=== PATIENT | male | born 1975 | race Caucasian/White ===

== ENCOUNTER 2018-07-04 20:27 | Emergency (ER) | payer OTHER ==
[~2018-07-04] VITALS: Ht 188 cm; Wt 81.6 kg
[2018-07-04 20:27] VITALS: BP 170/96
[2018-07-04] MEDS ORDERED: ONDANSETRON 4 MG/2 ML VIAL IVP ONE (20:30)
[2018-07-04] MEDS ORDERED: NACL 0.9% 1,000 ML IV ONE (20:30)
[2018-07-04] MEDS ORDERED: KETOROLAC 30 MG/ML VIAL IVP ONE (20:30)
[2018-07-04] MEDS ORDERED: MORPHINE SULFATE 4 MG/ML SYR IVP ONE (20:30)
[2018-07-04 20:44] LABS: BASOPHILS % (AUTO) 0.3 % (0.0-2.0); EOSINOPHILS # (AUTO) 0.2 K/uL (0-0.4); EOSINOPHILS % (AUTO) 1.5 % (0.0-4.0); HEMATOCRIT 46.9 % (36-52); HEMOGLOBIN 15.7 g/dL (12.0-18.0); LYMPHOCYTES # (AUTO) 2.7 K/uL (2.0-11.5); LYMPHOCYTES % (AUTO) 25.6 % (20.5-51.1); MEAN CORPUSCULAR HEMOGLOBIN 31 pg (27-31); MEAN CORPUSCULAR HGB CONC 33 g/dL (33-37); MONOCYTES # (AUTO) 0.9 K/uL (0.8-1.0); MONOCYTES % (AUTO) 8.4 % (1.7-9.3); NEUTROPHILS # (AUTO) 6.8 K/uL (1.8-7.7); NEUTROPHILS % (AUTO) 64.2 % (42.2-75.2); PLATELET COUNT (AUTO) 235 K/uL (140-450); RED BLOOD CELL COUNT(AUTO) 5.05 MIL/uL (4.20-6.10); RED CELL DISTRIBUTION WIDTH 13.7 % (11.6-13.7); WHITE BLOOD COUNT (AUTO) 10.5 K/uL (4.8-10.8)
[2018-07-04 21:05] LABS: ALBUMIN 3.8 g/dL (3.4-5.0); ANION GAP 11.4 (8-16); CARBON DIOXIDE 28.2 mmol/L (21-32); POTASSIUM 3.6 mmol/L (3.5-5.1); TOTAL BILIRUBIN 1.3 mg/dL (0.0-1.0)
[2018-07-04] MEDS ORDERED: HYDROmorphone 1 MG/ML AMP IVP ONE (21:05)
[2018-07-04] MEDS ORDERED: HYDROmorphone 1 MG/ML AMP ONE (21:07)
[2018-07-04 23:16] LABS: APPEARANCE,URINE CLEAR (CLEAR); BILIRUBIN,URINE NEGATIVE (NEGATIVE); BLOOD, URINE 3+ (NEGATIVE); COLOR,URINE YELLOW (YELLOW); LEUKOCYTE ESTERASE ,URINE NEGATIVE (NEGATIVE); NITRITE, URINE NEGATIVE (NEGATIVE); UGLUCOSE NEGATIVE (NEGATIVE)
[2018-07-04 23:24] LABS: BARBITURATE, URINE NEG. ng/ml (NEG <=200); BENZODIAZEPINE, URINE NEG. ng/mL (NEG <=200); CANNABINOID, URINE POS. ng/mL (NEG <=50); COCAINE, URINE NEG. ng/mL (NEG <=300); OPIATE, URINE POS. ng/mL (NEG <=2000); PHENCYCLIDINE SCREEN,URINE NEG. ng/mL (NEG <=25)
[2018-07-04 23:25] LABS: RBC,URINE 20-50 /HPF (0-5); WBC,URINE 0-5 (RARE) /HPF (0-5)
[2018-07-04 23:26] LABS: URINE AMORPHOUS URATE 2+ /HPF (None Seen)
[2018-07-04 23:40] VITALS: BP 120/72
== END 2018-07-04 23:40 | disposition home or self-care (01) ==
LOC: MED 20:27
DX: N20.1 Calculus of ureter (principal); R61 Generalized hyperhidrosis; F12.10 Cannabis abuse, uncomplicated
CPT/HCPCS: 36415; 74176; 80053; 80305; 81001; 82948; 83690; 85025; 93005; 96361; 96374; 96375; 99285; J1170; J1885; J2270; J2405; J7030

== ENCOUNTER 2019-05-15 12:20 | Inpatient (IN) | payer OTHER ==
[~2019-05-15] VITALS: Ht 182.9 cm; Wt 86.2 kg
[2019-05-15 12:27] VITALS: BP 133/96
--- NOTE | 2019-05-15 12:34 | NUR ---
43 Y MALE BIB SELF C/O LT 4TH FINGER PAIN SINCE 05/11. PT PUT NAIL THROUGH FINGER ON 05/11, PULLED IT OUT HIMSELF THEN WHEN FINGER WAS NOT GETTING BETTER ON 05/13 HE WENT TO ER. PT REPORTS WENT TO ER WEDNESDAY IN [place], RECIEVED ACOSTA AMAYA AND ANOTHER ABX, PT LT AMA AND WAS TOLD BY DR TO COME TO ER WHEN HE GETS HOME. PT REPORTS FEVER AND SWEATS LAST NIGHT ALONG WITH NAUSEA. VSS AT THIS TIME. PT AA0X4.ERYTHEMA UPON SITE. BED IS DOWN, LOCKED, BED RAIL X 1, ERMD TO SEE PT. MEDHX:PREDIABETIC RX:ATROVASATIN, METFORMIN, OXYCODONE
--- NOTE | 2019-05-15 12:50 | NUR ---
DR CASE AT BEDSIDE
[2019-05-15] MEDS ORDERED: KETOROLAC 30 MG/ML VIAL IVP ONE (12:55)
[2019-05-15] MEDS ORDERED: VANCOMYCIN 1,000 MG in DEXTROSE 5% 250 ML IV ONE (12:55)
[2019-05-15] MEDS ORDERED: PIPERACILLIN/TAZOBACTAM 3.375 GM in DEXTROSE 5% 50 ML IV ONE (12:55)
[2019-05-15] MEDS ORDERED: NACL 0.9% 1,000 ML IV ONE (12:55)
--- NOTE | 2019-05-15 12:58 | NUR ---
XRAY AT BEDSIDE
[2019-05-15] MEDS ORDERED: PIPERACILLIN/TAZOBACTAM 3.375 GM VIAL IV ONE (13:11)
[2019-05-15] MEDS ORDERED: VANCOMYCIN 1,000 MG VIAL ONE (13:11)
[2019-05-15 13:29] LABS: BASOPHILS # (AUTO) 0.1 K/uL (0.00-0.22); BASOPHILS % (AUTO) 0.6 % (0.0-2.0); EOSINOPHILS # (AUTO) 0.1 K/uL (0-0.4); EOSINOPHILS % (AUTO) 0.7 % (0.0-4.0); HEMOGLOBIN 15.2 g/dL (12.0-18.0); LYMPHOCYTES # (AUTO) 1.4 K/uL (2.0-11.5); LYMPHOCYTES % (AUTO) 14.4 % (20.5-51.1); MEAN CORPUSCULAR HEMOGLOBIN 31 pg (27-31); MEAN CORPUSCULAR HGB CONC 34 g/dL (33-37); MEAN CORPUSCULAR VOLUME 92.1 fL (80-94); MONOCYTES # (AUTO) 0.7 K/uL (0.8-1.0); MONOCYTES % (AUTO) 7.2 % (1.7-9.3); NEUTROPHILS # (AUTO) 7.4 K/uL (1.8-7.7); NEUTROPHILS % (AUTO) 77.1 % (42.2-75.2); PLATELET COUNT (AUTO) 213 K/uL (140-450); RED BLOOD CELL COUNT(AUTO) 4.88 MIL/uL (4.20-6.10); RED CELL DISTRIBUTION WIDTH 13.3 % (11.6-13.7); WHITE BLOOD COUNT (AUTO) 9.7 K/uL (4.8-10.8)
--- NOTE | 2019-05-15 14:01 | NUR ---
ZOSYN FINISHED. VANCO STARTED AT 165 MLS/HR
[2019-05-15 14:02] LABS: ANION GAP 11.9 (8-16); CARBON DIOXIDE 29.1 mmol/L (21-32); CREATININE 0.7 mg/dL (0.7-1.3)
--- NOTE | 2019-05-15 14:40 | NUR ---
DR CASE RE-EVALUATING PT
--- NOTE | 2019-05-15 14:49 | NUR ---
VSS AT THIS TIME. PT AA0X4
--- NOTE | 2019-05-15 15:27 | NUR ---
LIGHTS TURNED OFF FOR PT COMFORT
--- NOTE | 2019-05-15 15:41 | NUR ---
ANTIBIOTICS FINISHED RUNNING
--- NOTE | 2019-05-15 16:06 | NUR ---
DR. CASE BEDSIDE EVALUATING PT
[2019-05-15] MEDS ORDERED: BACITRACIN OINT 500 UNITS/GM PKT TP ONE (16:15)
--- NOTE | 2019-05-15 17:03 | NUR ---
PT C/O PAIN 05/01 AT THIS TIME, DR CASE NOTIFIED
[2019-05-15] MEDS ORDERED: MORPHINE SULFATE 2 MG/ML SYR IVP ONE (17:05)
--- NOTE | 2019-05-15 17:20 | NUR ---
PATIENT ARRIVED FROM ER VIA WHEELCHAIR. ABLE TO AMBULATE TO [facility] BED VIA STEADY GAIT. NO DISTRESS NOTED. PAIN WITHIN TOLERABLE. RESPIRATIONS EVEN, UNLABORED, ON ROOM AIR. ABDOMEN SOFT, NON-DISTENDED. AAOX4, CALM, COOPERATIVE, SKIN COLOR APPROPRIATE TO ETHNICITY, WARM TO TOUCH. LEFT FOURTH FINGER OPEN CELLULITIS. ORIENTED PATIENT TO ROOM AND CALL LIGHT. SAFETY MEASURES IN PLACE, CALL LIGHT WITHIN REACH. WILL CONTINUE TO MONITOR.
--- NOTE | 2019-05-15 17:20 | NUR ---
Patient will be admitted to care of [facility]. Admited to [facility]. Will go to room 119B. Belongings list completed. Report to SRINIVAS RAMOS.
[2019-05-15 18:11] VITALS: BP 124/84
[2019-05-15] MEDS ORDERED: DEXTROSE 50% 50 ML SYR IVP PRN (18:20)
[2019-05-15] MEDS ORDERED: INSULIN LISPRO SLIDING SCALE 100 UNITS/ML VIAL SUBQ PRN (18:20)
--- NOTE | 2019-05-15 19:25 | NUR ---
GAVE REPORT TO BLOOD BANK ASSISTANT NURSE FOR CONTINUITY OF CARE. PATIENT IN STABLE CONDITION.
--- NOTE | 2019-05-15 19:26 | NUR ---
RECEIVED BEDSIDE REPORT FROM DAYSVAFT NURSESRINIVAS. NO SOB OR ANY RESP DISTRESS NOTED ON RA. PAIN WITHIN TOLERABLE. ABDOMEN SOFT, NON-DISTENDED. NPO AFTER MIDNIGHT, AAOX4, COOPERATIVE, SKIN WARM AND DRY TO TOUCH. LEFT FOURTH FINGER OPEN CELLULITIS. SAFETY MEASURES IN PLACE, BED IN LOW POSITION, CALL LIGHT WITHIN REACH. WILL CONTINUE TO MONITOR.
[2019-05-15] MEDS: HYDROcodone/APAP 5/325 MG 1 TAB TAB PO PRN (20:31)
[2019-05-15] MEDS: BLOOD GLUCOSE MONITORING 1 DEV DEV FS SCH (20:42)
--- NOTE | 2019-05-15 20:42 | NUR ---
ANCEF GIVEN, PT C/O FINGER PAIN 510, GIVEN ORDERED. PT TOLERATED WELL. BLOOD GLUCOSE CHECKED, 107. NO INSULIN COVERAGE NEEDED. WILL CONTINUE TO MONITOR.
--- NOTE | 2019-05-15 21:15 | NUR ---
SPOKED WITH DR. CERVANTES, NOTIFIED CONSULT ORDER BY DR. FLYNN. DR. CERVANTES STATED NO SURGERY WILL NEED FOR PT. CANCELLED NPO AFTER MIDNIGHT AND ORDER CCHO60 DIET.
--- NOTE | 2019-05-15 22:30 | NUR ---
PT WANT TO EAT. PROVIDED TUNA SANDWICH BUT PT ALLERGIC TO ONION. CHANGED TO TURKEY SANDWICH. PT STATES HE IS ALSO ALLERGIC TO PENICILLINS. PUT ALLERGIC ALERT WRIST AND PUT IT TO CHART. Addendum: 05/15/19 at 2349 by Stiven Mao RN PT C/O HOT. BT CHECKED. 98.3 F DEGREE AND NORMAL ROOM TEMP NOTED. APPLIED 2 PACKS OF ICE PACK ON FOREHEAD AND SHOULDER. WILL CONTINUE TO MONITOR.
--- NOTE | 2019-05-15 23:50 | NUR ---
PT STATES "I FEEL BETTER NOW." WILL CONTINUE TO MONITOR.
[2019-05-16] VITALS: BP 131/73
--- NOTE | 2019-05-16 02:32 | NUR ---
PT SLEEPING IN BED. NO ACUTE DISTRESS NOTED. BED IN LOW POSITION. CALL LIGHT WITHIN REACH.
--- NOTE | 2019-05-16 04:24 | NUR ---
PT LYING IN BED, AWAKE. GIVEN ANCEF ORDERED. PT TOLERATED WELL. WILL CONTINUE TO MONITOR.
[2019-05-16] MEDS: BLOOD GLUCOSE MONITORING 1 DEV DEV FS SCH ×2 (06:00→11:30)
--- NOTE | 2019-05-16 06:00 | NUR ---
PT SLEEPING IN BED. BS CHECKED, 95, NO INSULIN COVERAGE NEEDED.
[2019-05-16] MEDS: HYDROcodone/APAP 5/325 MG 1 TAB TAB PO PRN ×2 (07:07→11:34)
--- NOTE | 2019-05-16 07:07 | NUR ---
DR. CERVANTES CAME AND CHECKED PT'S FINGER. SAID NO SURGERY NEEDED AND KEEP ON IV ATB. CHANGED DRESSING WITH BETADINE ORDERED. PT TOLERATED WELL. GIVEN NORCO ORDERED.
--- NOTE | 2019-05-16 07:30 | NUR ---
RECEIVED BEDSIDE REPORT FROM PACK MASTER NURSE. PATIENT IS RESTING ON BED AND AWAKE AT THIS TIME. PATIENT IS AAOX4. DENIES PAIN AT THIS TIME. RESPIRATION EVEN AND UNLABORED ON RA. NO SIGNS OF DISTRESS NOTED. IV ON L AC 20G, CLEAN AND DRY, NOT INFUSING AT THIS TIME. DRESSING CLEAN AND DRY ON L HAND 4TH FINGER, OTHERWISE SKIN INTACT AND CLEAN. PATIENT IS CONTINENT AND ABLE TO AMBULATE. DISCUSSED PLAN OF CARE WITH PATIENT AND PATIENT VERBALIZED UNDERSTANDING. SAFETY MEASURES IN PLACE. BED IN LOW POSITION AND CALL LIGHT WITHIN REACH. INSTRUCTED PATIENT TO USE THE CALL LIGHT FOR ANY ASSISTANCE AND PATIENT WAS AWARE.
--- NOTE | 2019-05-16 07:30 | NUR ---
ENDORSED PT TO DAY SHIFT NURSE. PT IN STABLE CONDITION.
[2019-05-16 08:00] VITALS: BP 133/80
--- NOTE | 2019-05-16 09:23 | NUR ---
PATIENT HAS BEEN SCREENED AND CATEGORIZED HIGH NUTRITION RISK. PATIENT WILL BE SEEN WITHIN 1-2 DAYS OF ADMISSION. 05/16/19-05/17/[address]
--- NOTE | 2019-05-16 09:25 | NUR ---
PATIENT IS SLEEPING AT THIS TIME. EVEN CHEST RISES NOTED. NO SIGNS OF DISTRESS NOTED. BED IN LOW POSITION AND CALL LIGHT WITHIN REACH.
--- NOTE | 2019-05-16 11:13 | NUR ---
CALLED [facility], PATIENT'S PCP AT [phone] TO SCHEDULE FOR A FOLLOW UP VISIT. SPOKE TO SUNDAR, SHE PROVIDED ME WITH MONMAY 22, 2019 AT 8067. COPY OF SCHEDULED FOLLOW UP VISIT PROVIDED TO PATIENT.
--- NOTE | 2019-05-16 11:34 | NUR ---
PATIENT COMPLAINED OF 6/10 PAIN AROUND HIS FINGER, ADMINISTERED PRN PAIN MED NORCO, PATIENT TOLERATED WELL. PATIENT IS AWAKE AND RESTING ON BED AT THIS TIME. NO SIGNS OF DISTRESS NOTED. SAFETY MEASURES IN PLACE. BED IN LOW POSITION AND CALL LIGHT WITHIN REACH. INSTRUCTED PATIENT TO USE THE CALL LIGHT FOR ANY ASSISTANCE AND PATIENT WAS AWARE.
--- NOTE | 2019-05-16 13:20 | NUR ---
DR FLYNN IS TALKING TO PATIENT AT BEDSIDE. RECEIVED VERBAL ORDER THAT PATIENT WILL BE DISCHARGE TODAY AND WILL BE PRESCRIBED FOR 10 DAYS PO ANTIBIOTICS TREATMENT AT HOME. READ BACK AND CONFIRMED WITH DR FLYNN. PATIENT WAS AWARE THAT HE IS GOING TO BE DC FROM THE HOSPITAL TODAY.
--- NOTE | 2019-05-16 13:45 | NUR ---
PATIENT IS CHANGING INTO HIS OWN CLOTHES AT THIS TIME. NO SIGNS OF DISTRESS NOTED.
--- NOTE | 2019-05-16 14:15 | NUR ---
DISCHARGE INSTRUCTION PROVIDED TO PATIENT AT BEDSIDE. EDUCATED PATIENT TO FOLLOW UP WITH MD AFTER DC, GO TO EMERGENCY ROOM OR CALL 911 FOR MEDICAL EMERGENCY, WOUND CARE, MEDICATION REGIMEN AND SIDE EFFECT. PROVIDED WOUND CARE SUPPLIES, PRESCRIPTION TO PATIENT. PATIENT VERBALIZED UNDERSTANDING. REMOVED ALL PATIENT'S ARM BANDS AND DC IV AND CANNULA INTACT. DISCHARGE WOUND PICTURE TAKEN. PATIENT TOLERATED WELL. PATIENT CHECKED ALL THE CABINETS AND TOOK ALL HIS BELONGINGS. ESCORTED PATIENT TO THE LOBBY AND PATIENT IS GOING TO DISCHARGE AT THIS TIME IN STABLE CONDITION.
== END 2019-05-16 14:15 | disposition home or self-care (01) | DRG 383 ==
LOC: MED 12:20 → MTU 17:00
PROVIDERS: ADMIT Internal Medicine Pulmonary Disease; ATTEND Internal Medicine Pulmonary Disease
DX: L03.012 Cellulitis of left finger (principal); E11.9 Type 2 diabetes mellitus without complications; I10 Essential (primary) hypertension; Z79.84 Long term (current) use of oral hypoglycemic drugs; Z88.0 Allergy status to penicillin
CPT/HCPCS: 36415; 73140; 80048; 82948; 85025; 87040; 87081; 96365; 96367; 96375; 99285; J0690; J1815; J1885; J2270; J2543; J3370; J7030; J7060; Q0092

== ENCOUNTER 2019-09-20 22:53 | Emergency (ER) | payer OTHER ==
[~2019-09-20] VITALS: Ht 182.9 cm; Wt 83.9 kg
[2019-09-20 22:55] VITALS: BP 134/79
--- NOTE | 2019-09-20 22:55 | NUR ---
TO BED # 06 AMBULATORY
--- NOTE | 2019-09-20 23:15 | NUR ---
XRAY AT BEDSIDE
--- NOTE | 2019-09-20 23:22 | NUR ---
44 Y/O MALE C/O LEFT SHOULDER PAIN, S/P FALL AT 2100 HOURS, PER PT.'S , FELL AND PASSED OUT FOR 20 MINUTES AND FOUND FACE DOWN. A/O X4 AND FOLLOWS COMMANDS; PERRLA +3 BILATERALLY. NO BRUISING NOTED. HAND PIZZA BAKER ARE STRONG; LIMITED RANGE OF MOTION NOTED WHEN PATIENT ROTATES ARM. ERMD MADE AWARE. SIDE RAILS X 2. AT BEDSIDE. WILL CONTINUE TO MONITOR. PMH: BORDERLINE DM; HIGH CHOLESTEROL RX: BENTYL; GABAPENTIN; VITAMIN D; ATORVASTATIN ALLERGIES: PENICILLINS, ONIONS
--- NOTE | 2019-09-20 23:51 | NUR ---
ERMD EVALUATING PATIENT AT BEDSIDE.
[2019-09-21] MEDS ORDERED: HYDROcodone/APAP 5/325 MG 1 TAB TAB PO ONE (00:30)
[2019-09-21 00:44] VITALS: BP 134/79
--- NOTE | 2019-09-21 00:44 | NUR ---
Patient discharged with v/s stable. Written and verbal after care instructions given and explained. Patient verbalized understanding. Ambulatory with steady gait. All questions addressed prior to discharge. Advised to follow up with PMD.
== END 2019-09-21 00:44 | disposition home or self-care (01) ==
LOC: MED 22:53
DX: M25.512 Pain in left shoulder (principal); E11.9 Type 2 diabetes mellitus without complications; Z91.018 Allergy to other foods; Z88.0 Allergy status to penicillin
CPT/HCPCS: 73030; 99283

== ENCOUNTER 2019-12-09 15:44 | Emergency (ER) | payer OTHER ==
[~2019-12-09] VITALS: Ht 182.9 cm; Wt 88.5 kg
[2019-12-09 16:01] VITALS: BP 124/65
[2019-12-09 16:58] VITALS: BP 124/65
--- NOTE | 2019-12-09 17:00 | NUR ---
44 Y/O M C/O RIGHT ELBOW PAIN X1 DAY. PT STATES HE AWOKE WITH THE ELBOW PAIN, UNABLE TO STRAIGHTEN ARM W/O EXTREME PAIN. ELBOW IS NOT RED OR SWOLLEN. CAP REFIL RIGHT FINGERS LESS THAN THREE. NO NUMBNESS OR TINGLING IN THE RIGHT ARM/HAND OR RADIATING PAIN. PT TOOK PERCOCET AT HOME THAT HAS NOT RELIEVED THE PAIN OF 10/10. PT POSITIONED FOR COMFORT, FRIEND AT BEDSIDE. ALLERGIES: PENICILLIN
--- NOTE | 2019-12-09 17:02 | NUR ---
PT TO X-RAY BY WHEELCHAIR.
[2019-12-09] MEDS ORDERED: MORPHINE SULFATE 2 MG/ML SYR IM ONE (17:10)
--- NOTE | 2019-12-09 17:25 | NUR ---
APPLYED M SIZE SLING TO PT RIGHT ELBOW, SLING FITTED TO PT
--- NOTE | 2019-12-09 17:32 | NUR ---
PT STATES THE PAIN IS NOW A 7/10 FROM A 10/10 AFTER MORPHINE INJECTION. RESTING COMFORTABLY, AT BEDSIDE.
== END 2019-12-09 17:40 | disposition home or self-care (01) ==
LOC: MED 15:44
DX: M77.11 Lateral epicondylitis, right elbow (principal); R10.32 Left lower quadrant pain; E13.8 Other specified diabetes mellitus with unspecified complications; Z88.0 Allergy status to penicillin; Z91.018 Allergy to other foods
CPT/HCPCS: 73080; 74018; 96372; 99283; J2270; Q0092

== ENCOUNTER 2020-08-23 23:31 | Emergency (ER) | payer OTHER ==
[~2020-08-23] VITALS: Ht 175.3 cm; Wt 83.9 kg
[2020-08-23 23:47] VITALS: BP 132/76
[2020-08-23 23:50] VITALS: BP 132/76
[2020-08-24] MEDS ORDERED: DEXAMETHASONE 10 MG/ML VIAL PO ONE (00:05)
== END 2020-08-24 00:14 | disposition home or self-care (01) ==
LOC: MED 23:31
DX: J02.9 Acute pharyngitis, unspecified (principal); E11.9 Type 2 diabetes mellitus without complications; Z91.018 Allergy to other foods; Z88.0 Allergy status to penicillin
CPT/HCPCS: 99283; J1100

== ENCOUNTER 2020-08-24 13:46 | Emergency (ER) | payer OTHER ==
[~2020-08-24] VITALS: Ht 182.9 cm; Wt 86.2 kg
[2020-08-24 13:54] VITALS: BP 136/94
[2020-08-24 15:25] VITALS: BP 136/94
== END 2020-08-24 15:25 | disposition home or self-care (01) ==
LOC: MED 13:46
DX: J02.0 Streptococcal pharyngitis (principal); R73.09 Other abnormal glucose; Z88.0 Allergy status to penicillin; Z91.018 Allergy to other foods; Z20.828 Contact with and (suspected) exposure to other viral communicable diseases
CPT/HCPCS: 99283; U0003

== ENCOUNTER 2021-11-02 10:00 | Emergency (ER) | payer OTHER ==
[~2021-11-02] VITALS: Ht 182.9 cm; Wt 88.5 kg
[2021-11-02 10:03] VITALS: BP 150/97
--- NOTE | 2021-11-02 10:09 | NUR ---
PT TAKEN TO ER BED 2 VIA W/C.
--- NOTE | 2021-11-02 10:29 | NUR ---
46 Y/O M C/O RLQ PAIN 10/10 RADIATES TO HIS R LOWER BACK. STARTED 4 AM LAST NIGHT. NO N/V BUT D ONCE LAST NIGHT. PT HAD SPINAL FUSION IN 2012 SO THE PAIN RADIATES TO HIS BACK. PT CALLED THE NURSE LINE LAST NIGTH, HE WAS TOLD TO GO TO ER FOR R/O APPENDICITIS. ALLERGIES: PENECILLIN PMH: CHOLESTEROL
--- NOTE | 2021-11-02 11:03 | NUR ---
46 Y/O MALE C/O RLQ ABD PAIN 10/10 DESCRIBES CRAMPING CONSTANT AND HEADACHE X 1 DAY. ABD IS SOFT, ROUND, BOWEL SOUNDS ACTIVE X4, GUARDING TO RLQ SITE TENDERNESS NOTED. DENIES FEVER/CHILLS. DENIES N/V/D. PMH: HLD, PRE DM ALLERGIES: PCN, ONION
[2021-11-02] MEDS: MORPHINE SULFATE 4 MG/ML SYR IVP ONE ×2 (11:18→12:19)
--- NOTE | 2021-11-02 11:21 | NUR ---
PT STATES HE IS UNABLE TO PROVIDE UA AT THIS TIME. MADE AWARE.
[2021-11-02 11:25] LABS: BASOPHILS # (AUTO) 0.1 K/uL (0.00-0.22); BASOPHILS % (AUTO) 0.7 % (0.0-2.0); EOSINOPHILS # (AUTO) 0.1 K/uL (0-0.4); EOSINOPHILS % (AUTO) 0.6 % (0.0-4.0); HEMATOCRIT 43.4 % (36-52); HEMOGLOBIN 14.9 g/dL (12.0-18.0); LYMPHOCYTES # (AUTO) 1.7 K/uL (2.0-11.5); LYMPHOCYTES % (AUTO) 16.7 % (20.5-51.1); MEAN CORPUSCULAR HEMOGLOBIN 32 pg (27-31); MEAN CORPUSCULAR HGB CONC 34 g/dL (33-37); MEAN CORPUSCULAR VOLUME 91.9 fL (80-94); MONOCYTES # (AUTO) 0.7 K/uL (0.8-1.0); MONOCYTES % (AUTO) 7.3 % (1.7-9.3); NEUTROPHILS # (AUTO) 7.4 K/uL (1.8-7.7); NEUTROPHILS % (AUTO) 74.7 % (42.2-75.2); PLATELET COUNT (AUTO) 258 K/uL (140-450); RED BLOOD CELL COUNT(AUTO) 4.72 MIL/uL (4.20-6.10); RED CELL DISTRIBUTION WIDTH 13.3 % (11.6-13.7)
--- NOTE | 2021-11-02 11:28 | NUR ---
PT TO CT SCAN VIA WHEELCHAIR.
[2021-11-02 11:41] LABS: ALBUMIN 3.9 g/dL (3.4-5.0); ANION GAP 9.9 (8-16); CARBON DIOXIDE 30.1 mmol/L (21-32); CREATININE 0.8 mg/dL (0.6-1.3); TOTAL BILIRUBIN 1.1 mg/dL (0.0-1.0)
[2021-11-02] MEDS ORDERED: KETOROLAC 30 MG/ML VIAL ONE (12:10)
[2021-11-02] MEDS: NACL 0.9% 1,000 ML IV ONE (12:17)
[2021-11-02] MEDS: KETOROLAC 30 MG/ML VIAL IVP ONE (12:19)
[2021-11-02 14:34] LABS: BILIRUBIN,URINE 2+ (NEGATIVE); BLOOD, URINE 3+ (NEGATIVE); LEUKOCYTE ESTERASE ,URINE TRACE (NEGATIVE); NITRITE, URINE NEGATIVE (NEGATIVE); PH,URINE 6.5 (5.0-9.0); UGLUCOSE NEGATIVE (NEGATIVE)
[2021-11-02 14:37] LABS: APPEARANCE,URINE CLOUDY (CLEAR); COLOR,URINE BROWN (YELLOW)
[2021-11-02 14:50] LABS: RBC,URINE TOO NUMEROUS TO COUN /HPF (0-5)
[2021-11-02] MEDS ORDERED: TAMS0.4C96 PO (15:03)
[2021-11-02] MEDS ORDERED: CEPH-588 PO (15:19)
[2021-11-02] MEDS: cephALEXin 500 MG CAP PO ONE (15:33)
--- NOTE | 2021-11-02 15:33 | NUR ---
PT PROVIDED WITH KRISHNA BLOCK
[2021-11-02 15:49] VITALS: BP 135/75
--- NOTE | 2021-11-02 15:50 | NUR ---
Patient discharged with v/s stable. Written and verbal after care instructions given and explained. Patient alert, oriented and verbalized understanding of instructions. Ambulatory with steady gait. All questions addressed prior to discharge. ID band removed. Patient advised to follow up with PMD. Rx of KEFLEX AND FLOMAX given. Patient educated on indication of medication including possible reaction and side effects. Opportunity to ask questions provided and answered.
== END 2021-11-02 15:50 | disposition home or self-care (01) ==
LOC: MED 10:00
DX: N20.9 Urinary calculus, unspecified (principal); E11.9 Type 2 diabetes mellitus without complications; E78.5 Hyperlipidemia, unspecified; Z98.890 Other specified postprocedural states; Z79.2 Long term (current) use of antibiotics; Z79.899 Other long term (current) drug therapy; Z88.0 Allergy status to penicillin; Z91.018 Allergy to other foods
CPT/HCPCS: 36415; 74176; 80053; 81001; 83690; 85025; 87086; 96361; 96374; 96375; 96376; 99285; J1885; J2270; J7030

== ENCOUNTER 2021-11-17 21:16 | Emergency (ER) | payer OTHER ==
[~2021-11-17] VITALS: Ht 182.9 cm; Wt 88.5 kg
[~2021-11-17 21:16] MED LIST: CEPH-588 PO; TAMS0.4C96 PO
[2021-11-17 21:58] VITALS: BP 113/75
--- NOTE | 2021-11-17 22:00 | NUR ---
TO LOBBY A/W BED AMBULATORY
--- NOTE | 2021-11-17 23:50 | NUR ---
SWAB FOR BOB SENT TO LAB
--- NOTE | 2021-11-18 01:00 | NUR ---
seen by almas no nursing interventions needed for patient
[2021-11-18] MEDS ORDERED: FLONAS NS (01:18)
[2021-11-18] MEDS ORDERED: AZIT250T4 PO (01:18)
[2021-11-18 01:49] VITALS: BP 121/74
--- NOTE | 2021-11-18 01:49 | NUR ---
Patient discharged with v/s stable. Written and verbal after care instructions given and explained. Patient alert, oriented and verbalized understanding of instructions. Ambulatory with steady gait. All questions addressed prior to discharge. ID band removed. Patient advised to follow up with PMD. Rx of azithromycin and flonase nasal given. Patient educated on indication of medication including possible reaction and side effects. Opportunity to ask questions provided and answered.
== END 2021-11-18 01:49 | disposition home or self-care (01) ==
LOC: MED 21:16
DX: J32.9 Chronic sinusitis, unspecified (principal); Z20.822 Contact with and (suspected) exposure to COVID-19; E78.5 Hyperlipidemia, unspecified; I10 Essential (primary) hypertension; Z88.0 Allergy status to penicillin; Z91.018 Allergy to other foods; Z79.899 Other long term (current) drug therapy
CPT/HCPCS: 93005; 99284

== ENCOUNTER 2022-04-11 23:21 | Emergency (ER) | payer OTHER ==
[~2022-04-11] VITALS: Ht 182.9 cm; Wt 87.1 kg
[~2022-04-11 23:21] MED LIST changes: +AZIT250T4 PO; +FLONAS NS
[2022-04-11 23:29] VITALS: BP 116/69
--- NOTE | 2022-04-11 23:34 | NUR ---
PT TAKEN TO BED 05.
--- NOTE | 2022-04-11 23:51 | NUR ---
DR. MORATAYA AT BEDSIDE FOR EVALUATION
[2022-04-12 00:10] LABS: BASOPHILS # (AUTO) 0.1 K/uL (0.00-0.22); BASOPHILS % (AUTO) 0.6 % (0.0-2.0); EOSINOPHILS # (AUTO) 0.1 K/uL (0-0.4); EOSINOPHILS % (AUTO) 1.7 % (0.0-4.0); HEMATOCRIT 46.7 % (36-52); HEMOGLOBIN 15.7 g/dL (12.0-18.0); LYMPHOCYTES # (AUTO) 2.1 K/uL (2.0-11.5); LYMPHOCYTES % (AUTO) 24.5 % (20.5-51.1); MEAN CORPUSCULAR HEMOGLOBIN 31 pg (27-31); MEAN CORPUSCULAR HGB CONC 34 g/dL (33-37); MEAN CORPUSCULAR VOLUME 92.5 fL (80-94); MONOCYTES # (AUTO) 0.8 K/uL (0.8-1.0); NEUTROPHILS # (AUTO) 5.5 K/uL (1.8-7.7); NEUTROPHILS % (AUTO) 64.2 % (42.2-75.2); PLATELET COUNT (AUTO) 233 K/uL (140-450); RED BLOOD CELL COUNT(AUTO) 5.05 MIL/uL (4.20-6.10); RED CELL DISTRIBUTION WIDTH 13.5 % (11.6-13.7); WHITE BLOOD COUNT (AUTO) 8.6 K/uL (4.8-10.8)
[2022-04-12 00:28] LABS: ALBUMIN 3.7 g/dL (3.4-5.0); ANION GAP 10.5 (8-16); CARBON DIOXIDE 26.8 mmol/L (21-32); CREATININE 0.8 mg/dL (0.6-1.3); POTASSIUM 3.3 mmol/L (3.5-5.1)
--- NOTE | 2022-04-12 00:36 | NUR ---
PT SLEEPING . NOT RESTRIANTS ARE APPLIED. Q15 MIN ROUNDS.
[2022-04-12 00:58] LABS: TOTAL BILIRUBIN 0.8 mg/dL (0.0-1.0)
--- NOTE | 2022-04-12 01:28 | NUR ---
ER AT BEDSIDE
[2022-04-12] MEDS ORDERED: LOPE1TAB14 PO ×2 (01:32→01:46)
--- NOTE | 2022-04-12 01:46 | NUR ---
d/c with VSS. d/c education given. opportunity to ask questions given and answered. rx given to pt.
== END 2022-04-12 01:46 | disposition home or self-care (01) ==
LOC: MED 23:21
DX: R10.13 Epigastric pain (principal); R19.7 Diarrhea, unspecified; R11.2 Nausea with vomiting, unspecified
CPT/HCPCS: 36415; 74018; 80053; 83690; 85025; 99284; Q0092

== ENCOUNTER 2022-04-24 23:58 | Emergency (ER) | payer OTHER ==
[~2022-04-24] VITALS: Ht 182.9 cm; Wt 87.5 kg
[~2022-04-24 23:58] MED LIST changes: +LOPE1TAB14 PO
[2022-04-25 00:08] VITALS: BP 125/82
--- NOTE | 2022-04-25 00:12 | NUR ---
COVID-19 and flu swabs collected and sent to lab.
--- NOTE | 2022-04-25 01:33 | NUR ---
Dr. Gutierrez examining patient.
--- NOTE | 2022-04-25 01:55 | NUR ---
Patient discharged with v/s stable. Written and verbal after care instructions given and explained. Patient verbalized understanding.pt d/c from car . pt did not want to come in to get last set of vitals. states "I want to stay in my car" All questions addressed prior to discharge. Advised to follow up with PMD.
== END 2022-04-25 01:55 | disposition home or self-care (01) ==
LOC: MED 23:58
DX: U07.1 COVID-19 (principal); E11.9 Type 2 diabetes mellitus without complications; Z79.899 Other long term (current) drug therapy; Z79.2 Long term (current) use of antibiotics; Z91.018 Allergy to other foods; Z88.0 Allergy status to penicillin
CPT/HCPCS: 71045; 99284